=== PATIENT | female | born 1995 | race Caucasian/White ===

== ENCOUNTER 2021-11-04 08:34 | Emergency (ER) | payer MEDICAID ==
[~2021-11-04] VITALS: Ht 165.1 cm; Wt 73.0 kg
[2021-11-04] MEDS ORDERED: IBUPROFEN 600MG TABLET PO ONE (09:30)
[2021-11-04] MEDS ORDERED: ACETAMINOPHEN 325MG TABLET PO ONE (09:30)
[2021-11-04] MEDS ORDERED: ONDANSETRON 4MG ODT PO ONE (09:30)
[2021-11-04 09:42] VITALS: BP 115/77
[2021-11-04 09:56] LABS: CLARITY URINE CLOUDY (CLEAR); COLOR URINE YELLOW (YELLOW); KETONES URINE TRACE (NEGATIVE); LEUKOCYTE ESTERASE URINE 1+ (NEGATIVE); NITRITE URINE POSITIVE (NEGATIVE); OCCULT BLOOD URINE NEGATIVE (NEGATIVE); PH URINE 7.5 (4.5-8.0); PROTEIN URINE NEGATIVE (NEGATIVE); SPECIFIC GRAVITY URINE 1.023 (1.005-1.030)
== END 2021-11-04 12:23 | disposition left against medical advice (07) ==
LOC: ER 08:34
DX: B34.9 Viral infection, unspecified (principal); Z20.822 Contact with and (suspected) exposure to COVID-19
CPT/HCPCS: 81003; 87426; 87804; 99284; C9803; Q0162

== ENCOUNTER 2021-11-11 03:33 | Emergency (ER) | payer MEDICAID ==
[~2021-11-11] VITALS: Ht 165.1 cm; Wt 70.0 kg
[2021-11-11 05:13] LABS: HEMATOCRIT. 34.4 % (36.0-48.0); HEMOGLOBIN. 11.9 g/dL (12.0-16.0); MEAN CORPUSCULAR HEMOGLOBIN 28.6 pg (28.0-32.0); MEAN CORPUSCULAR VOLUME 82.7 fL (81.0-99.0); MEAN PLATELET VOLUME 7.5 fl (7.4-10.4); PLATELET 463 x1000/uL (130-400); RED BLOOD CELL COUNT 4.16 mill/uL (4.2-5.4); RED CELL DISTRIBUTION WIDTH 14.1 % (11.6-14.6)
[2021-11-11 05:20] LABS: CHLORIDE 90 mEq/L (98-107)
[2021-11-11] MEDS ORDERED: SODIUM CHLORIDE 0.9% 1,000 ML IV ONE (05:30)
[2021-11-11 06:40] LABS: HCG SCREEN NEGATIVE
[2021-11-11 06:46] LABS: CLARITY URINE CLEAR (CLEAR); COLOR URINE YELLOW (YELLOW); KETONES URINE NEGATIVE (NEGATIVE); LEUKOCYTE ESTERASE URINE 2+ (NEGATIVE); NITRITE URINE POSITIVE (NEGATIVE); OCCULT BLOOD URINE 2+ (NEGATIVE); PH URINE 5.5 (4.5-8.0); PROTEIN URINE NEGATIVE (NEGATIVE); SPECIFIC GRAVITY URINE 1.006 (1.005-1.030); UROBILINOGEN URINE 0.2 E.U./dL (0.2-1.0)
[2021-11-11 07:35] LABS: *AMPHETAMINES SCREEN URINE NEGATIVE (NEGATIVE); *BARBITURATES SCREEN URINE NEGATIVE (NEGATIVE); *BENZODIAZEPINES SCREEN URINE NEGATIVE (NEGATIVE); *COCAINE SCREEN URINE NEGATIVE (NEGATIVE); CANNABINOID URINE SCREEN NEGATIVE (NEGATIVE); METHADONE URINE SCREEN NEGATIVE (NEGATIVE); PHENCYCLIDINE URINE SCREEN NEGATIVE (NEGATIVE)
[2021-11-11 07:39] LABS: OPIATES URINE SCREEN PRESUMTIVE POSITIVE (NEGATIVE)
[2021-11-11] MEDS ORDERED: IBUP-2029 MT (09:04)
[2021-11-11] MEDS ORDERED: CEPH500C2 MT (09:04)
[2021-11-11 10:06] LABS: PLATELET ESTIMATE INCREASED
[2021-11-11 10:15] VITALS: BP 126/88
== END 2021-11-11 11:17 | disposition home or self-care (01) ==
LOC: ER 03:33
DX: R10.9 Unspecified abdominal pain (principal); Z59.00 Homelessness unspecified; F17.290 Nicotine dependence, other tobacco product, uncomplicated; F15.10 Other stimulant abuse, uncomplicated
CPT/HCPCS: 36415; 74176; 80053; 80305; 81003; 81025; 83690; 84703; 85025; 87077; 87086; 87186; 93005; 99285; J7030; Z7610

== ENCOUNTER 2021-11-25 18:41 | Emergency (ER) | payer MEDICAID ==
[~2021-11-25] VITALS: Ht 165.1 cm; Wt 63.0 kg
[~2021-11-25 18:41] MED LIST: CEPH500C2 MT; IBUP-2029 MT
[2021-11-25 18:52] VITALS: BP 121/81
== END 2021-11-25 21:40 | disposition left against medical advice (07) ==
LOC: ER 18:41
DX: Z53.21 Procedure and treatment not carried out due to patient leaving prior to being seen by health care provider (principal)

== ENCOUNTER 2021-11-26 06:03 | Emergency (ER) | payer MEDICAID ==
[~2021-11-26] VITALS: Ht 165.1 cm; Wt 65.3 kg
[2021-11-26 06:12] VITALS: BP 136/77
[2021-11-26 10:21] LABS: CLARITY URINE CLEAR (CLEAR); COLOR URINE YELLOW (YELLOW); KETONES URINE NEGATIVE (NEGATIVE); LEUKOCYTE ESTERASE URINE 1+ (NEGATIVE); NITRITE URINE NEGATIVE (NEGATIVE); OCCULT BLOOD URINE NEGATIVE (NEGATIVE); PH URINE 6.5 (4.5-8.0); PROTEIN URINE NEGATIVE (NEGATIVE); SPECIFIC GRAVITY URINE 1.003 (1.005-1.030); UROBILINOGEN URINE 0.2 E.U./dL (0.2-1.0)
== END 2021-11-26 10:11 | disposition home or self-care (01) ==
LOC: ER 06:03
DX: R33.9 Retention of urine, unspecified (principal); Z87.891 Personal history of nicotine dependence
CPT/HCPCS: 81003; 99283

== ENCOUNTER 2022-09-04 18:43 | Emergency (ER) | payer MEDICAID ==
[~2022-09-04] VITALS: Ht 165.1 cm; Wt 64.0 kg
[2022-09-04 19:11] VITALS: BP 129/87
[2022-09-04] MEDS ORDERED: AMOX1TAB16 MT (21:36)
== END 2022-09-04 21:50 | disposition home or self-care (01) ==
LOC: ER 18:43
DX: S81.851A Open bite, right lower leg, initial encounter (principal); W54.0XXA Bitten by dog, initial encounter; Y93.89 Activity, other specified; Y92.89 Other specified places as the place of occurrence of the external cause; Y99.8 Other external cause status; F15.10 Other stimulant abuse, uncomplicated
CPT/HCPCS: 99281; 99283

== ENCOUNTER 2024-12-07 08:32 | Emergency (ER) | payer MEDICAID ==
[~2024-12-07] VITALS: Ht 162.6 cm; Wt 84.0 kg
[~2024-12-07 08:32] MED LIST changes: +AMOX1TAB16 MT
[2024-12-07 09:00] VITALS: O2SAT 97
[2024-12-07] MEDS: ACETAMINOPHEN 325MG TABLET PO ONE (09:19)
[2024-12-07] MEDS ORDERED: NAPR220C61 MT (10:37)
[2024-12-07 10:52] VITALS: BP 110/67; PULSE 101; RESP 17; TEMP 37.4; O2SAT 97
[2024-12-07 11:14] LABS: INFLUENZA TYPE A Presumptive Negative (Pres. Neg.)
[2024-12-07 11:15] LABS: INFLUENZA TYPE B Presumptive Negative (Pres. Neg.); RESPIRATORY SYNCYTIAL VIRUS Not Detected (Not Detectd)
== END 2024-12-07 10:53 | disposition home or self-care (01) ==
LOC: ER 08:32
DX: R50.9 Fever, unspecified (principal); R05.9 Cough, unspecified; R09.89 Other specified symptoms and signs involving the circulatory and respiratory systems; F10.90 Alcohol use, unspecified, uncomplicated; F12.90 Cannabis use, unspecified, uncomplicated; Z79.899 Other long term (current) drug therapy; Z88.6 Allergy status to analgesic agent; Y90.9 Presence of alcohol in blood, level not specified
CPT/HCPCS: 81025; 87420; 87804; 99283